=== PATIENT | male | born 1930 | race Caucasian/White ===

== ENCOUNTER 2016-07-25 07:50 | Inpatient (IN) | payer MEDICARE, OTHER ==
[~2016-07-25] VITALS: Ht 185.4 cm; Wt 103.5 kg
[2016-07-25] VITALS (10 sets, daily range): BP systolic 132–180; BP diastolic 68–97
--- NOTE | ~2016-07-25 | DS ---
[place], [place] DISCHARGE SUMMARY NAME: JAYCOB GASCA [facility] #: [id number] UNIT #: [id number] ROOM: [place] [address] DOCTOR: YU RIVERA MD BIRTHDATE: [birth year] DOS: 07/28/2016 DISCHARGE DIAGNOSES: 1. Loculated pleural effusion in left lower lung on CT of the chest. The patient going to [facility] for drainage. Dr. Cm Paredes has accepted the patient at [facility]. 2. Chronic kidney disease stage 3A. 3. Congestive heart failure, systolic type, with left ventricular ejection fraction of about 50%. 4. Late onset Alzheimer type dementia. 5. Acute respiratory failure, hypoxemic type, from acute pneumonia, which has resolved. 6. Chronic atrial fibrillation. 7. Coronary artery disease of [place] vessels and coronary artery bypass graft and stents. 8. History of chronic kidney disease stage 3 and diabetic nephropathy. 9. History of benign essential hypertension. 10. Benign prostatic hypertrophy. HOSPITAL COURSE: 1. The patient was admitted for increased shortness of breath and acute over chronic respiratory failure and he was found to have pneumonia, sepsis, and congestive heart failure. The patient had left lower lung infiltrates. Dr. Sheffield, poundmaster, was consulted and he was treated and followed closely. The patient was treated with antibiotics and finally he is now found to have loculated left lower lung fluid, for which he is being transferred to [facility] for evacuation. Dr. Sheffield will continue to follow the patient along with Dr. Cm Paredes. 2. Moderate protein-calorie malnutrition. 3. Late onset Alzheimer type dementia and mental confusion. 4. Acute over chronic systolic type CHF. The patient treated with IV Bumex, diuresed, pulse oximetry was monitored along with serum electrolytes and his CHF has improved. 5. Coronary artery disease of [place] vessels and coronary artery bypass grafts with angioplasties without any chest pains. 6. Benign essential hypertension with controlled blood pressures. 7. Chronic atrial fibrillation, rapid ventricular response, seen and followed by Dr. Ramirez, treatment adjusted. 8. Hypokalemia from diuresis, treated with potassium supplements. LABORATORY DATA: BUN and creatinine of 21 and 1.45. Sodium 148, normal potassium at 3.[address] of the chest results as mentioned above. DISCHARGE MANAGEMENT: DuoNeb every 4 hours, Pulmicort 0.5 mg b.i.d. with DuoNeb, IV Solu-Medrol 40 mg every 12 hours, Imdur 60 mg a day, diltiazem 30 mg every 6 hours, Bumex 1 mg b.i.d., digoxin 125 mcg daily, potassium chloride 20 mEq b.i.d., rivastigmine 4.6 mg patch daily, finasteride 5 mg a day, tamsulosin 0.4 mg a day, MiraLax 17 grams at bedtime, metoprolol 100 mg b.i.d., apixaban 5 mg b.i.d., Lipitor 80 mg a day, Fleet enema daily p.r.n. for constipation, [place], [place] DISCHARGE SUMMARY NAME: JAYCOB GASCA UNIT #: [id number] ROOM: [place] [address] DOCTOR: MIGUEL BEAR,YU Wolff BIRTHDATE: [birth year] azithromycin 500 mg IV daily, Zosyn 3.375 grams IV every [address] Sheffield, admit the patient under care of Dr. Cm Paredes. Vicodin 7.5/325 mg q.i.d. p.r.n. for pain. Oxygen titrate to keep pulse ox 90% to 96%. YU RIVERA MD CM:EMELIA [id number] YU RIVERA MD 07/28/161900 interface
--- NOTE | ~2016-07-25 | PR ---
[place], [place] PROGRESS NOTE NAME: JAYCOB GASCA [facility] #: [id number] UNIT #: [id number] ROOM: 520 DOCTOR: ROHIT DANIELSON MD BIRTHDATE: [birth year] DOS: 07/26/2016 SUBJECTIVE: The patient is doing fine without any new changes. He is pleasantly confused and at times inappropriate as per the nursing staff. Appears to be short of breath at rest, but the patient states that he is fine and does not have any complaints. PHYSICAL EXAMINATION: GENERAL: Today, he is awake and alert. Orientation is questionable. VITAL SIGNS: Pressure is 138/66; pulse of 70s, irregular; respirations 20; temperature 98.2. LUNGS: Diminished breath sounds. Scattered rales at the bases. HEART: Irregular. Heart rate in the 70s. ABDOMEN: Obese, soft. EXTREMITIES: Chronic lymphedema. ASSESSMENT AND PLAN: 1. Atrial fibrillation with rapid ventricular response. Heart rate is controlled. We will discontinue IV Cardizem and place him on p.o. medications. 2. Mild congestive heart failure, on IV diuretics; diastolic congestive heart failure, acute. 3. Possible left lower lobe pneumonia, on IV antibiotics. 4. Alzheimer dementia, late onset, with encephalopathy, on appropriate treatment plan. ROHIT DANIELSON MD CM:PNTRANS [id number] ROHIT DANIELSON MD 07/26/16 0822 interface
--- NOTE | ~2016-07-25 | WRIGHTHP ---
[place], [place] PATIENT HISTORY AND PHYSICAL EXAM NAME: JAYCOB GASCA [facility] #: [id number] UNIT #: [id number] ROOM: 520 DOCTOR: YU RIVERA MD BIRTHDATE: [birth year] DOS: 07/25/2016 HISTORY OF PRESENT ILLNESS: The patient is an 86-year-old gentleman with a past medical history of chronic atrial fibrillation, coronary artery disease of [place] vessels, status post coronary artery bypass grafting and stents in the past, history of chronic kidney disease stage 3, benign essential hypertension, late onset Alzheimer type dementia, benign prostatic hypertrophy. The patient presented to the Emergency Department and was seen by Dr. Marco Antonio Becker for declining health, increasing shortness of breath and he was evaluated in the Emergency Department and found to have pneumonia, sepsis and congestive heart failure. The patient had lung infiltrates in left lower lung area and the same chest x-ray showed congestive heart failure. His blood pressures were elevated. After admission, the patient's blood pressures have improved and he is starting to feel better after initial antibiotics that were given to him. The patient is awake, alert but pleasantly confused, unable to provide much history. REVIEW OF SYSTEMS: LUNGS: Recent shortness of breath and difficulty with breathing. GASTROINTESTINAL: No nausea, vomiting, diarrhea, or constipation. CARDIOVASCULAR: No chest pains or palpitations recently. HOME MEDICATIONS: Rivastigmine, finasteride, Flomax, MiraLax, metoprolol, apixaban, Lipitor, diltiazem, digoxin, DuoNeb. FAMILY HISTORY: Noncontributory. ALLERGIES: KNOWN ALLERGIES TO INDERAL. PHYSICAL EXAMINATION: GENERAL: Awake, alert, confused, in no visible distress. The patient has generalized weakness. Of course, the patient also mentally confused. VITAL SIGNS: Blood pressure 150/82, heart rate of 58 beats per minute, breathing 20 times per minute, temperature 98 degrees Fahrenheit. HEENT AND NECK: Extraocular movements are intact. Sclerae are anicteric. Oral mucosa is moist and clean. No obvious facial weakness. Neck is supple without any lymphadenopathy. No thyromegaly. No JVD. No carotid arterial bruits. LUNGS: Decreased breath sounds on lung auscultation. No wheezing. No rhonchi. CARDIOVASCULAR SYSTEM: Heart rate is regular in rate and rhythm. S1 and S2 normally audible. No significant murmur or any other abnormal cardiac sounds. ABDOMEN: Soft, nontender. No obvious organomegaly. Bowel sounds are present. No obvious herniation. EXTREMITIES: 2+ leg and pedal edema. Warm to touch. CENTRAL NERVOUS SYSTEM: Alert and oriented x 3. Cranial nerves II-XII are intact. Speech is normal. The patient is able to move all extremities. Normal muscle strength. Deep tendon reflexes are equal on both sides. Plantars were downgoing. LABORATORY DATA: ProBNP elevated to 10,800. Chest x-ray showing left lower lung airspace consolidation suspicious for pneumonia and congestive heart failure. Lactic acid level of 1.9, magnesium 1.9. BUN and creatinine of 25 and [place], [place] PATIENT HISTORY AND PHYSICAL EXAM NAME: [facility]AS[facility] [id number] UNIT #: [id number] ROOM: [facility] DOCTOR: MIGUEL BEAR,YU Wolff BIRTHDATE: [birth year] 1.2. Normal serum electrolytes. Albumin low at 2.9. Hemoglobin 9.8. No leukocytosis. IMPRESSION: 1. The patient presenting with left lower lobe pneumonic infiltrates and congestive heart failure. The patient already started on 2 antibiotics, azithromycin and Zosyn, and blood counts will be monitored. The patient is being treated with oxygen and DuoNeb and followed closely. 2. Moderate protein calorie malnutrition. 3. Late onset Alzheimer type dementia with taking bedsore precautions including every 2 hour turning, air mattress, and taking fall precautions. 4. Acute congestive heart failure, systolic type, being diuresed with IV Bumex. 5. I will get Dr. Sheffield from Pulmonary and Critical Care to follow the . 6. Coronary artery disease of [place] vessels without any angina symptoms. 7. Benign essential hypertension with controlled blood pressures, will be monitored and treated. YU RIVERA MD CM:HISPHYS:PATIENT HISTORY AND PHYSICAL EXAMINATION [id number] YU RIVERA MD 07/25/161830 interface
--- NOTE | ~2016-07-25 | PR ---
[place], [place] PROGRESS NOTE NAME: JAYCOB GASCA [facility] #: [id number] UNIT #: [id number] ROOM: [place] [address] DOCTOR: GAEL GALVEZ MD,TIGRE BIRTHDATE: [birth year] DOS: 07/27/2016 HISTORY OF PRESENT ILLNESS: This is an 86-year-old male who has been admitted to the hospital. The patient has been treated for acute respiratory failure. The patient has been noted with a change in mental status with significant respiratory distress early this morning as the patient was assessed by Dr. Amira Jenkins. The patient was transferred to Intensive Care Unit. In the Intensive Care Unit, the patient has been started on the BiPAP at this time. He has been noted more responsive without any respiratory distress and saturating well with the use of the BiPAP. The patient has not been noted symptoms of hemodynamic instability at the present time. The tachypnea has been noted decreased for this patient with the BiPAP use. OBJECTIVE: VITAL SIGNS: The patient showed normal temperature, respiratory rate 20, heart rate of 78, blood pressure 152/94-153/80. The intake for the patient recorded as 1752 mL over 1150 mL. Pulse oxygen saturation with the BiPAP 12/8, 35% oxygen 98% saturation recorded. HEENT: Shows head was atraumatic. Eyes nonicterus. CARDIOVASCULAR SYSTEM: S1, S2 audible. LUNGS: With scattered crackles of the lungs bilaterally. There was no wheezing. ABDOMEN: Soft, nontender. LABORATORY DATA: BMP for this patient 07/27/2016, BUN 21, creatinine 1.45, glucose 102. Sodium 148. CBC: The patient's hemoglobin 8.9, hematocrit 29.3, platelet count 159,000. Arterial blood gas earlier on 3 liters, pH 7.42, pCO2 of 42, pO2 of 72.4. The arterial blood gas on the BiPAP setting of 12/8, 35% oxygen, pH of 7.44, pCO2 of 41, pO2 of 131 was recorded blood culture from the of this month shows no bacterial growth. IMPRESSION: 1. The patient current respiratory distress with acute hypoxic respiratory failure secondary to the acute pneumonia the patient from aspiration. 2. Suspected dysphagia as well. 3. Possibility of fluid overload and congestive heart failure would be considered as well. 4. History of Alzheimer disease and dementia. PLAN OF TREATMENT: The patient has been responding to current use of the BiPAP at the present time was also getting the diuretic therapy. Monitor kidney functions closely because of the current diuretic as the creatinine were noted elevated. He has been ordered CT scan of the chest, which will be done without contrast that were also give a good assessment for this patient for any underlying mass lesion for this patient with area of atelectasis in the left lung. Other supportive therapy, plan of management continued at this time. Usual care. Further treatment changes will be done based on progression of illness. At this time, the patient will be continued on the BiPAP use for this patient and responding well to the treatment. He would not require to be intubated and we are started on mechanical ventilation at this time. [place], [place] PROGRESS NOTE [facility]: [id number] #: [id number] ROOM: [place] [address] DOCTOR: TIGRE GUEVARA MD BIRTHDATE: [birth year] catheter will be inserted for this patient to help improve the diuresis. Monitor left pleural fluid as well. TIGRE MAYO MD CM:PNTRANS [id number] TIGRE GALVEZ MD 07/27/16 1712 interface
--- NOTE | ~2016-07-25 | PR ---
[place], [place] PROGRESS NOTE NAME: JAYCOB GASCA [facility] #: [id number] UNIT #: [id number] ROOM: [place] [address] DOCTOR: GAEL GALVEZ MD,TIGRE BIRTHDATE: [birth year] DOS: 07/28/2016 PULMONARY PROGRESS NOTE SUBJECTIVE: He has been noted fully awake and alert at this time. The patient has been noted significant improvement in the mental status. He has not been noted with any signs of respiratory distress at this time. The patient has not been noted with symptoms of chest pain or any abdominal pain. OBJECTIVE: VITAL SIGNS: Normal temperature, respiratory rate 19, heart rate 73, blood pressure 122/81-105/57. Intake for the patient 670, output for the patient recorded 4550 mL, negative 3800 mL. Pulse oxygen saturation on 3 L nasal cannula 98% saturation. HEENT: Showed no new change. NECK: Supple. CARDIOVASCULAR: S1, S2 audible. LUNGS: Decreased breath sounds in the lower portion of the lungs. There was no wheezing or crackles. ABDOMEN: Soft, nontender. LABORATORY DATA: BMP: BUN 25, creatinine 1.49, sodium 149, remaining electrolytes grossly normal. CBC today: WBC count 4.7, hemoglobin 9.0, hematocrit 29.1, platelet count was normal. The CT scan of the chest that was done yesterday was personally reviewed, shows small possible moderate pleural fluid on the right side. Significant loculated pleural fluid for the patient was noted in the left lung for this patient with area of infiltration involving that. IMPRESSION: 1. The patient with multiloculated pleural fluid on the left side for the patient with acute pneumonia for this patient was suspected, currently treated with acute aspiration pneumonia with gram-positive organisms. 2. Right-sided pleural fluid of the patient with possibility of congestive heart failure of the patient. Other etiologies have been considered and being treated. 3. Resolving acute changes in the mental status of the patient and the acute hypoxic respiratory failure. 4. Acute exacerbation of COPD/bronchial asthma as well. 5. History of Alzheimer disease. 6. Atrial fibrillation, chronic anticoagulation. PLAN OF TREATMENT: The patient will be recommended about transfer to another hospital for a VATS procedure on the left side for the medical management of multiloculated pleural fluid. Information has been discussed with his primary care physician. Continuation of the previous treatment, plan of management at this time including antibiotic, use of the BiPAP and other plan of therapies as in progress. Usual treatments. [place], [place] PROGRESS NOTE [id number] #: [id number] ROOM: [place] [address] DOCTOR: GAEL GALVEZ MD,TIGRE BIRTHDATE: [birth year] TIGRE MAYO MD CM:PNTRANS 1014 3 TIGRE GALVEZ MD 07/29/165 interface
--- NOTE | ~2016-07-25 | CON ---
[place], [place] REPORT OF CONSULTATION NAME: JAYCOB GASCA [facility] #: [id number] UNIT #: [id number] ROOM: 520 DOCTOR: GAEL GALVEZ MD,TIGRE BIRTHDATE: [birth year] DOS: 07/26/2016 PULMONARY CONSULTATION EVALUATION AND MANAGEMENT CONSULTATION REQUESTED BY: Josias Walker MD REASON FOR CONSULTATION: Acute pneumonia. HISTORY OF PRESENT ILLNESS: This is an 86-year-old white male who is currently residing at the [facility]. The patient has been admitted under care of Dr. Walker on 07/25/2016. He has been noted with symptoms of increased shortness of breath, coughing and chest congestion. The patient was sent to the Emergency Room for further assessment. He has been assessed in the Emergency Room. The patient has been admitted to the hospital for the medical management of left lower lobe pneumonia. The patient has been known with history of chronic dementia, unable to give me any history by himself. At this time, this patient was noted with increased dyspnea as well as tachypnea. His oxygen saturation noted 72%. He was ordered the blood gases and started on oxygen supplementation nasal cannula resulting in improvement in the oxygen saturation 95% saturation. REVIEW OF SYSTEMS: Cannot be completed since the patient has dementia, unable to give me any history and has normal verbal conversations. PAST MEDICAL HISTORY: The patient was known with history of: 1. Alzheimer's disease and dementia. 2. Myocardial infarction. 3. Hypertension. 4. Coronary artery disease. 5. Chronic atrial fibrillation. 6. Trigeminal neuralgia. 7. History of nephrolithiasis. PAST SURGICAL HISTORY: 1. Coronary artery bypass graft in 1993. 2. Surgery of trigeminal neuralgia x 2. 3. Cardiac catheterization and coronary artery stent insertion. SOCIAL HISTORY: The patient is currently a resident of [facility], not known if the patient has been noted with past tobacco use, alcohol or any illicit drugs. FAMILY HISTORY: The patient was reported as history of cancer. MEDICATIONS: Currently administered medication of patient known as use of Bumex, Exelon patch, finasteride, Cardizem-CD, Flomax, MiraLax, Eliquis 5 mg b.i.d., digoxin, DuoNeb, Zithromax, Zosyn and other medications p.r.n. use. DRUG ALLERGIES: The patient was noted as allergies to INDERAL LA. [place], [place] REPORT OF CONSULTATION [facility]: [id number] UNIT #: [id number] ROOM: 520 DOCTOR: GAEL GALVEZ MD,TIGRE BIRTHDATE: [birth year] PHYSICAL EXAMINATION: GENERAL: This 86-year-old male who has been noted currently without distress, disoriented, most likely secondary to his underlying dementia. Height of the patient recorded as 6 feet 1 inch, weight of 227 pounds, BMI 29.9. VITAL SIGNS: Show normal temperature for the patient in the last 48 hours, respiratory rate of 20-27, heart rate of 102-78, blood pressure -130/66. Pulse oxygen saturation 90% on room air, and 2 liters nasal cannula was 94% saturation. HEENT: Moderate obesity. NECK: Supple. CARDIOVASCULAR: S1, S2 audible. LUNGS: Expiratory wheezing noted in the lungs for the patient with crackles and decreased breath sounds in the left lower lung. ABDOMEN: Soft, nontender. LABORATORY DATA: CBC of the patient on 07/25/2016 on admission, WBC count was normal, hemoglobin 9.6, hematocrit 32.1, platelet count was normal. CBC that was done this morning shows WBC count 7.0, hemoglobin 8.8, hematocrit of 28.8 with normal platelet count of 159,000. The BMP for this patient that was done on admission 07/25/2016 shows sodium 146. BUN 25, creatinine 1.23. Glucose 156. BMP this morning for the patient showed BUN 24, creatinine 1.36. Sodium 150, potassium 3.2. Lactic acid was noted 1.3 for this patient yesterday on admission. Magnesium was normal. PT/PTT of patient yesterday on admission was normal as well. Chest x-ray of the patient that was done, 1 view, on 07/25/2016 shows moderate sized area of consolidation, infiltration. Chest x-ray done this morning shows similar finding for the patient with a small left-sided pleural fluid as well with increased interstitial markings. The appearance of the infiltration at this time appeared to be very dense with additional consideration of mass lesion in that area cannot be completely excluded. IMPRESSION: 1. The patient with acute hypoxic respiratory failure secondary to acute pneumonia, most likely related to aspiration, history of dementia would be considered most likely etiology. The patient would be considered current pneumonia related to the gram-positive organism as well, which is already being treated with antibiotics. 2. History of dementia and Alzheimer's disease as well with some additional confusion for the patient related to the current acute infection would be considered. 3. Small left-sided pleural fluid as well. 4. Rule out any underlying mass for this patient with further assessment of patient after the appropriate treatment of the current infection completed. PLAN OF TREATMENT: Continue antibiotics for the patient, aspiration precautions. Monitor chest x-ray. Once the patient stabilizes, he would be considered to have a CT scan of the chest to be done as well to assessment and rule out any mass lesion, especially in the left lower lobe area. Continue anticoagulation for the patient with history of atrial fibrillation as well. Usual care. Titrate oxygen and maintain saturation % greater. Arterial blood gas for the patient, which has been ordered, was obtained, does not show [place], [place] REPORT OF CONSULTATION NAME: JAYCOB GASCA UNIT #: [id number] ROOM: [facility] DOCTOR: GAEL GALVEZ MD,TIGRE BIRTHDATE: [birth year] any evidence of CO2 narcosis. Hypoxia was improved for this patient on current oxygen supplementation. The pH was noted 7.45, pCO2 of 38, pO2 of 77.1. The patient's code status was noted as a full code as well. If the hypoxia does not get corrected with current oxygen supplementation or worsened further, trial of the BiPAP for this patient, if failed, the patient may need to be transferred to Intensive Care Unit for intubation and mechanical ventilation if necessary at that time. Currently, the patient seems to be responding to treatment with simple oxygen supplementation that will be continued. Sputum for Gram stain and culture of the patient will be done if the patient is able to expectorate any sputum. The pleural fluid will be monitored, does not require any acute intervention at this time immediately. If the pleural fluid enlarges, certainly consideration for thoracentesis will be given. Thanks for allowing me to participate in the care of this patient. TIGRE MAYO MD CM:CONSTR:REPORT OF CONSULTATION 1049 07/26/16 2238 interface
--- NOTE | ~2016-07-25 | PR ---
[place], [place] PROGRESS NOTE NAME: JAYCOB GASCA [facility] #: [id number] UNIT #: [id number] ROOM: [place] [address] DOCTOR: LAVERNE OCONNELL MD BIRTHDATE: [birth year] DOS: 07/27/2016 CARDIOLOGY PROGRESS NOTE SUBJECTIVE: The patient was seen at his bedside in the Intensive Care Unit this morning, 07/27/2016. When I saw him yesterday, he was comfortable but still had a relatively rapid heart rhythm. I increased his oral dose of diltiazem and digoxin and increased his diuresis. Around midnight, they were able to wean him off of intravenous diltiazem. His heart rate has remained controlled since then. This morning, however, he was noted to be more lethargic with an oxygen saturation of 95 and a pO2 of 72. He was placed on BiPAP and became more comfortable. He was moved to the Intensive Care Unit for further management. Currently, he is on BiPAP and seems much more lethargic than when I have seen him in the past. PHYSICAL EXAMINATION: VITAL SIGNS: His pulse is 87 and irregularly irregular. Blood pressure is 150/90. His oxygen saturation on BiPAP is 98%. His weight was 103.0 kilograms. HEENT: Normocephalic, atraumatic. Extraocular muscles are intact. Sclerae are clear. NECK: Supple. He does not have significant neck vein distention when lying in a 45 degree angle. He does have mild hepatojugular reflux. Carotids are full. LUNGS: Respirations are per BiPAP and seem to be fairly comfortable. He does have bibasilar crackles. HEART: An irregularly irregular rhythm, which is controlled. Does have a grade 2/6 systolic murmur along the left sternal border. I do not hear any diastolic murmurs. The PMI was not displaced. ABDOMEN: Soft and normoactive. EXTREMITIES: Showed 1+ edema bilaterally. LABORATORY DATA: Hemoglobin is 8.9, white count 5400, platelet count 159,000. Sodium 148, potassium 3.8, BUN 21, creatinine 1.45. Sugar was 102 this morning. Blood gases just drawn on BiPAP a few moments ago, pH is 7.45 with a pCO2 of 41.1, pO2 of 131, bicarbonate 28.3. IMPRESSION: 1. Acute on chronic respiratory distress. 2. Atrial fibrillation with rapid ventricular response, rate now controlled. 3. History of hypertension. 4. Dementia. 5. Wide complex tachycardia on admission, most likely due to aberrancy with rapid atrial fibrillation. 6. Permanent atrial fibrillation. PLAN: We will repeat his EKG and chest x-ray in order to help determine the cause for his acute deterioration. A CAT scan of his chest is pending. We will continue his current diuresis for now. I thank Dr. Jenkins for asking our advice regarding his care. [place], [place] PROGRESS NOTE NAME: JAYCOB GASCA UNIT #: [id number] ROOM: [place] [address] DOCTOR: LAVERNE OCONNELL MD BIRTHDATE: [birth year] LAVERNE OCONNELL MD CM:MABEL [id number] LAVERNE OCONNELL MD 07/27/16 1126 interface
--- NOTE | ~2016-07-25 | DS ---
[place], [place] DISCHARGE SUMMARY [facility] [id number] UN[facility] #: [id number] ROOM: 520 DOCTOR: ROHIT DANIELSON MD BIRTHDATE: [birth year] DOS: 07/26/2016 The patient has gotten much worse in the last 24 hours is nearly obtunded and lethargic and quite short of breath with audible wheezing and abdominal breathing. He did not respond to call. He seemed to have tried to avoid this morning, but he seemed to have a hard time with that also. PHYSICAL EXAMINATION: VITAL SIGNS: Blood pressure is 140/76, pulse of 72, respirations about 24, temperature 98.6. LUNGS: Diminished breath sounds, scattered wheezes heard bilaterally. HEART: Irregular. ABDOMEN: Obese with abdominal breathing. EXTREMITIES: Chronic lymphedema. ASSESSMENT AND PLAN: 1. The patient who presents with acute hypoxic respiratory failure with acute bronchospasm. A CT of the chest will be done to further delineate the exact pathology in his lungs. The chest x-ray seems to show both pneumonia and CHF. He is on both diuretics and multiple antibiotics. We will add Solu-Medrol and Pulmicort to his regimen this morning. 2. Atrial fibrillation with rapid ventricular response. He is on p.o. Cardizem and p.o. beta blockers and p.o. digoxin. Heart rate seems to be slightly high because of his increased respiratory distress and he is a full code. We will get an ABG this morning to see whether he needs to be transferred to ICU. 3. Alzheimer dementia, late onset again confused this morning, possibly from hypoxemia. ROHIT DANIELSON MD CM:DISCHARG [id number] ROHIT DANIELSON MD 07/27/16 0813 interface
--- NOTE | ~2016-07-25 | PR ---
[place], [place] PROGRESS NOTE NAME: JAYCOB GASCA [facility] #: [id number] UNIT #: [id number] ROOM: 520 DOCTOR: LAVERNE OCONNELL MD BIRTHDATE: [birth year] DOS: 07/26/2016 CARDIOLOGY PROGRESS NOTE SUBJECTIVE: The patient was seen at his bedside today, 07/26/2016 for followup of his atrial fibrillation and wide complex tachycardia. He presented yesterday with congestive heart failure and a rapid response to his atrial fibrillation. The monitor did show runs of wide complex tachycardia. Upon assessment I believe that this is atrial fibrillation with aberrant conduction rather than ventricular tachycardia. When we slowed his rate with diltiazem intravenously, the wide complex tachycardia improved. He feels well today. He is breathing better, but he did not tolerate the discontinuation of his IV diltiazem this morning because his heart rate went up again. PHYSICAL EXAMINATION: VITAL SIGNS: Today, his pulse is about 100 and irregularly irregular, blood pressure is 109/84. He is afebrile. He weighs 103 kilograms with a body mass index of 30. NECK: Supple. He has no jugular distention. Carotids are full. I heard no bruits. LUNGS: Respirations are unlabored. Chest has decreased breath sounds at the bases. He has no presacral edema. HEART: Has an irregularly irregular pulse. There are no obvious murmurs. ABDOMEN: Benign. EXTREMITIES: Showed 3+ edema bilaterally. LABORATORY DATA: His hemoglobin is 8.8 with a white count of 7000, a platelet count 159,000. Digoxin level is 0.84, sodium is 150, potassium 3.2, BUN 24, and creatinine 1.36. I think he would benefit from tighter control of his heart rate; therefore, I did increase his digoxin, especially since his level is subtherapeutic. I also placed him on oral diltiazem in an effort to wean him off the intravenous drug. PLAN: We will continue his current dose of metoprolol. He will also continue apixaban for stroke prophylaxis. I will increase his Bumex to try to improve his diuresis. I will replace his potassium today. We will continue to follow him in the hospital. I thank Dr. Barker for asking our advice regarding his care. [place], [place] PROGRESS NOTE NAME: JAYCOB GASCA UNIT #: [id number] ROOM: 520 DOCTOR: LAVERNE OCONNELL MD BIRTHDATE: [birth year] LAVERNE OCONNELL MD CM:PNTRANS [id number] LAVERNE OCONNELL MD 07/26/16 9710 interface
--- NOTE | ~2016-07-25 | EKG ---
[place], [place] ELECTROCARDIOGRAM REPORT NAME: JAYCOB GASCA UNIT #: [id number] ROOM: [place] [address] DOCTOR: LAVERNE OCONNELL MD BIRTHDATE: [birth year] DOS: 07/27/2016 TIME: 09:22 am. Atrial fibrillation with controlled ventricular response, occasional PVC or ____ conducted beats. Non-specific ST and T wave changes. No acute ST elevation or depression. Probable inferior infarction indeterminant. Abnormal electrocardiogram. LAVERNE OCONNELL MD CM:EKGRPT:ELECTROCARDIOGRAM REPORT [id number] LAVERNE OCONNELL MD
--- NOTE | ~2016-07-25 | CON ---
[place], [place] REPORT OF CONSULTATION NAME: JAYCOB GASCA [facility] #: [id number] UNIT #: [id number] ROOM: 520 DOCTOR: LAVERNE OCONNELL MD BIRTHDATE: [birth year] DOS: 07/25/2016 CARDIOLOGY CONSULTATION REASON FOR CONSULTATION: Dyspnea, irregular heartbeat. HISTORY OF PRESENT ILLNESS: The patient is an 86-year-old man, who has a long history of atherosclerotic heart disease. He tells me that he is routinely followed by Dr. Schreiber, at the [facility]; however, the patient cannot recall when he last saw him. He has been hospitalized on several occasions recently at the [facility]. I saw him when he was hospitalized on 05/01/2016. He presented at that time with worsening dyspnea and chest tightness. An echocardiogram on 05/03/2016, showed mild global left ventricular hypokinesis, especially involving the distal inferior septum. Left ventricular systolic function was mildly impaired with an ejection fraction between 45% and 50%. There was moderate left atrial enlargement. The aortic valve was sclerotic and he had [id number] mitral insufficiency. A pharmacologic stress test was also done on 05/03/2016, and showed an ejection fraction of 40% with evidence for previous lateral myocardial infarction with a small area of ischemia in the inferior wall. Given the fact that his disease appeared to be fairly limited. He was managed medically. He subsequently did have a lwv-UK-oamflgj elevation myocardial infarction, which again was treated medically. He has been a resident of a penitentiary since then. The patient does have a history of dementia and is a poor historian. He states, however, that recently he has become more short of breath again. He denies having any chest pain. He came to the emergency room, where he was found to have consolidation in the left lower lobe along with pulmonary vascular congestion, he was admitted for management of pneumonia and heart failure. PAST MEDICAL HISTORY: Somewhat limited but includes; 1. Coronary artery disease, status post 3-vessel bypass surgery at the [facility] in [place] around 1993. 2. Status post 3 stents placed at the [facility] by Dr. Schreiber, in the early 1999s, details not available. 3. Chronic atrial fibrillation. The patient refuses anticoagulation for a while a long time, but now is on Eliquis. 4. Hypertension. 5. Hyperlipidemia. 6. History of kidney stones. 7. Trigeminal neuralgia. The patient has had surgical procedures on at least 2 occasions to help treat the pain of obvious trigeminal neuralgia. 8. Dementia. MEDICATIONS: Prior to admission included; 1. Albuterol by inhaler q.i.d. p.r.n. 2. Apixaban 5 mg q. 12 hours. 3. Atorvastatin 80 mg every day. [place], [place] REPORT OF CONSULTATION NAME: JAYCOB GASCA UNIT #: [id number] ROOM: [facility] DOCTOR: LAVERNE OCONNELL MD BIRTHDATE: [birth year] 4. Cholecalciferol 1000 units daily. 5. Digoxin 125 mcg daily. 6. Finasteride 5 mg daily. 7. Ginkgo 60 mg daily. 8. Guaifenesin 600 mg 2 tablets b.i.d. 9. Hydrocodone with acetaminophen b.i.d. 10. Milk of magnesia p.r.n. 11. Metoprolol succinate 100 mg b.i.d. 12. Multivitamin daily. 13. Eldred 3 fish oil 500 mg daily. 14. Polyethylene glycol at bedtime daily p.r.n. 15. Tamsulosin 0.4 mg at bedtime. 16. Vitamin A, C, and E (PreserVision) daily. 17. Bisacodyl 10 mg daily p.r.n. constipation. 18. Fleets enema p.r.n. 19. Nitroglycerin patch 0.2 mg per hour applied in the morning and removed at bedtime. 20. Rivastigmine patch 4.6 mg for 24 hours, change daily. ALLERGIES: THE PATIENT LISTS AN ALLERGY TO PROPRANOLOL. REVIEW OF SYSTEMS: The patient denies diplopia or loss of vision. He is generally weak, but denies focal weakness. He denies lightheadedness or syncope. He denied dyspnea at first, but was obviously dyspneic during my assessment. He denies nausea or vomiting. He denies fevers, chills, sweats or recent weight change. He denied orthopnea or PND, but he was orthopneic as I examined him. He denied chest pain, palpitations or syncope. He denied hemoptysis. He did admit to a chill and he did admit to a productive cough, which may have gotten worse lately. He denied any bleeding from bowels or bladder. He denies any change in his bowel or bladder habits. He does admit to peripheral edema in his feet. The remainder of the review of systems is negative except as noted above. SOCIAL HISTORY: The patient is a resident of a penitentiary. He does not smoke or consume alcohol at the present time. FAMILY HISTORY: His father of cancer. His mother of heart disease. PHYSICAL EXAMINATION: GENERAL: The patient is an elderly white male, who is awake, alert and oriented x 2. He is intermittently disoriented to place as well. VITAL SIGNS: Pulse is 86 and irregularly irregular, it is frequently higher than 110. Blood pressure 150/97. He is afebrile. HEENT: Normocephalic, atraumatic. Extraocular muscles are intact. Sclerae are clear. Pupils are equal, round and reactive to light. Oral mucosa is moist. Tongue is midline. NECK: Supple. He does have jugular distention to the angle of the jaw when sitting in a 45-degree angle. He has hepatojugular reflux. Carotids are full. I heard no bruits. CHEST: Respirations were somewhat labored at rest. He had a hard time [place], [place] REPORT OF CONSULTATION NAME: JAYCOB GASCA UNIT #: [id number] ROOM: [facility] DOCTOR: LAVERNE OCONNELL MD BIRTHDATE: [birth year] finishing a sentence. He does have rales at the bases and about [facility] up, especially at the left base. He had presacral edema, but no chest wall tenderness. CARDIOVASCULAR: His heart had an irregularly irregular rapid rhythm. There are no obvious murmurs or gallops. The PMI was not displaced. He had no precordial heave, lift or thrill. ABDOMEN: Slightly distended. There is no obvious fluid wave. He had no tenderness or rebound. There were no obvious masses. EXTREMITIES: Showed 2+ edema of the legs to the knees bilaterally. LABORATORY DATA: I reviewed his electrocardiographic tracings. He does have an intraventricular conduction delay and atrial fibrillation with a rapid ventricular response. His rhythm strips do show frequent periods of aberrant conduction. It is not clear whether this represents wide complex tachycardia or aberrant conduction with atrial fibrillation; however, the patient is asymptomatic at this time. Hemoglobin is 9.8, white count 5900, platelet count 166,000. Chemistry shows sodium of 146, potassium 4.0, BUN 25, creatinine 1.23. Magnesium level is 1.9. Troponin level was minimally elevated at 0.065. IMPRESSION: 1. Acute exacerbation of chronic diastolic congestive heart failure. 2. Coronary artery disease, status post remote bypass surgery and subsequent percutaneous interventions. 3. Hypertension. 4. Dementia. 5. Wide complex tachycardia. 6. Permanent atrial fibrillation. PLAN: For now, we will slow his heart rate and see if the wide complex tachycardia does not resolve. It is my impression that the wide complex tachycardia is an aberrancy phenomenon and should improve as his rate is slowed. We will follow serial cardiac biomarkers to make sure he does not show any signs of an acute cardiac injury. We will continue his beta evens and add diltiazem to his regimen. I will also be checking a digoxin level to make sure the digoxin toxicity is not a cause for his arrhythmias. Otherwise, we will try to remain conservative in his care, especially given his problems with dementia. We thank Dr. Walker and Dr. Jenkins, for asking our advice regarding management of this patient. [place], [place] REPORT OF CONSULTATION NAME: JAYCOB GASCA UNIT #: [id number] ROOM: [facility] DOCTOR: LAVERNE OCONNELL MD BIRTHDATE: [birth year] LAVERNE OCONNELL MD CM:CONSTR:REPORT OF CONSULTATION [id number] 07/25/16 2336 interface
[~2016-07-25 07:50] MED LIST: 50+ ADULT EYE1 EACH PO; AMIODARONE HCL200 MG PO; AMIODARONE200 MG PO; AMLODIPINE5 MG PO; ASCRIPTIN ENTER81 MG PO; ASPIR 8181 MG PO; ASPIRIN81 M1 PO; ATORVASTATIN CA80 M1 PO; AVADART; AVODART0.5 MG PO; CEFUROXIME AXE250 MG PO; CIPROFLOXACIN500 M4 PO; CRESTOR20 MG PO; DIGOX0.125 MG PO; DIGOXIN0.125 MG PO; DULCOLAX10 M1 RC; ELIQUIS5 M1 PO; EXELON4.6 MG/24 T; EXELON4.6 MG/24 TD; EYE VITAMINS1 TAB PO; FINASTERIDE5 M1 PO; FISH OIL PO; FISH OIL1 IU PO; FISH OIL500 M2 PO; FLEET ENEMA 13133 ML RC; FLOMAX0.4 MG PO; GINKGO60 MG PO; HYDR25T PO; HYDROCODONE/ACE1 T12 PO; IBUPROFEN600 MG PO; K + POTASSIUM20 MEQ PO; K-Dur 20MEQ20 MEQ PO; LASIX20 MG PO; LASIX40 MG PO; MASON NATURAL1000 IU PO; MILK OF MA400 MG/51 PO; MIRALAX POWDER255 G1 PO; MIRALAX17 GM PO; MIRALAX17 GM/PACK PO; MOBIC7.5 MG PO; MULTI-DAY VITA1 EACH PO; NITRO TRANS0.2 MG/HR TD; NITRO-DUR1 EAC1 TD; NORCO 7.5-3251 EACH PO; PLAVIX75 M1 PO; PLAVIX75 MG PO; POLLY-VITES1 CTB PO; POTASSIUM CITR10 ME1 PO; PRAVASTATIN SOD80 MG PO; PRESERVISION1 SGL PO; PROAIR HFA8.5 GM INH; PROSCAR5 M1 PO; Percocet 325 MG1 TAB PO; TAMSULOSIN HCL0.4 MG PO; TEGRETOL200 MG PO; TOPROL XL100 MG PO; ULTRAM50 MG PO; UROCIT PO; VITAMIN C PO; VITAMIN D1000 IU PO; Vicodin 5/500 505 MG PO; ZESTRIL20 MG PO; ZESTRIL40 MG PO; ZETIA10 MG PO; ZINC50 M2 PO; [UNRECOGNIZED DRUG - OTHER] PO
[2016-07-25 08:18] LABS: BASO % 0.3 % (0.0-1.0); EOS # 0.1 10*3/uL (0.0-0.4); HEMATOCRIT 32.1 % (42.0-52.0); HEMOGLOBIN 9.8 g/dl (14.0-18.0); LYMPH # 0.9 10*3/uL (1.3-4.4); LYMPH % 14.8 % (27.0-41.0); MEAN CELL VOLUME 101.9 fl (80.0-94.0); MEAN CORPUSCULAR HGB 31.1 pg (27.0-31.0); MEAN CORPUSCULAR HGB CONC 30.5 g/dl (33.0-37.0); MEAN PLATELET VOLUME 10.4 fl (9.6-12.3); MONO # 0.5 10*3/uL (0.1-1.0); MONO % 8.5 % (3.0-9.0); NEUT # 4.4 10*3/uL (2.3-7.9); NEUT % 75.1 % (47.0-73.0); PLATELET COUNT AUTOMATED 166 10*3/uL (130-400); RED BLOOD COUNT 3.15 10*6/uL (4.50-5.90); WHITE BLOOD COUNT 5.9 10*3/uL (4.8-10.8)
[2016-07-25 08:27] LABS: INTERNATIONAL NORM RATIO 1.1 (2.0-3.5)
[2016-07-25 08:37] LABS: ALBUMIN 2.9 gm/dl (3.1-4.5); ALKALINE PHOSPHATASE 94 U/L (45-117); BILIRUBIN, TOTAL 0.9 mg/dl (0.2-1.0); BUN 25 mg/dl (7-24); CARBON DIOXIDE 31 mmol/L (21-32); CHLORIDE 110 mmol/L (98-107); EST GLOM FILT AFRICAN AMERICAN > 60 ml/min; GLUCOSE 106 mg/dL (65-99); SGOT/AST 18 IU/L (3-35); SGPT/ALT 26 U/L (12-78); SODIUM 146 mmol/L (136-145); TOTAL PROTEIN 6.3 gm/dL (6.4-8.2)
[2016-07-25 08:39] LABS: TROPONIN I 0.065 ng/ml (<0.045)
[2016-07-25] MEDS ORDERED: DOXYCYCLINE100 M3 PO (08:55)
[2016-07-25] MEDS ORDERED: PREDNISONE10 MG PO (08:56)
[2016-07-25] MEDS ORDERED: VENTOLIN H0.09 MG/AC INH (08:56)
[2016-07-25] MEDS ORDERED: GUAIFENESIN600 MG PO (10:25)
[2016-07-26] VITALS (9 sets, daily range): BP systolic 109–147; BP diastolic 66–84
[2016-07-26 06:30] LABS: BASO % 0.1 % (0.0-1.0); EOS # 0.1 10*3/uL (0.0-0.4); HEMATOCRIT 28.8 % (42.0-52.0); HEMOGLOBIN 8.8 g/dl (14.0-18.0); LYMPH # 0.6 10*3/uL (1.3-4.4); LYMPH % 8.5 % (27.0-41.0); MEAN CELL VOLUME 100.7 fl (80.0-94.0); MEAN CORPUSCULAR HGB 30.8 pg (27.0-31.0); MEAN CORPUSCULAR HGB CONC 30.6 g/dl (33.0-37.0); MEAN PLATELET VOLUME 10.5 fl (9.6-12.3); MONO # 0.7 10*3/uL (0.1-1.0); MONO % 10.1 % (3.0-9.0); NEUT # 5.6 10*3/uL (2.3-7.9); NEUT % 78.9 % (47.0-73.0); PLATELET COUNT AUTOMATED 159 10*3/uL (130-400); RED BLOOD COUNT 2.86 10*6/uL (4.50-5.90); RED CELL DISTRI WIDTH 15.9 % (0-14.5)
[2016-07-26 07:06] LABS: BUN 24 mg/dl (7-24); CARBON DIOXIDE 29 mmol/L (21-32); CHLORIDE 110 mmol/L (98-107); EST GLOM FILT AFRICAN AMERICAN > 60 ml/min; GLUCOSE 117 mg/dL (65-99); POTASSIUM 3.2 mmol/L (3.5-5.1); SODIUM 150 mmol/L (136-145)
[2016-07-26 07:16] LABS: DIGOXIN 0.84 ng/ml (0.8-2.0)
[2016-07-26 09:40] LABS: ABG BASE EXCESS 2.7 mmol/L (-2.0-2.0); ABG CO2 CONTENT 27.6 mmol/L (23-27); ABG HCO3 26.4 mmol/l (22-26); ABG TEMPERATURE 97.9 F (98.0-99.0); ARTERIAL BLOOD GAS PH 7.452 (7.35-7.45); ARTERIAL BLOOD GAS PO2 77.1 mmHg (80-90)
[2016-07-27] VITALS (9 sets, daily range): BP systolic 120–161; BP diastolic 67–94
[2016-07-27 06:09] LABS: BASO % 0.2 % (0.0-1.0); EOS # 0.2 10*3/uL (0.0-0.4); EOS % 4.3 % (1.0-4.0); HEMATOCRIT 29.3 % (42.0-52.0); HEMOGLOBIN 8.9 g/dl (14.0-18.0); LYMPH # 0.8 10*3/uL (1.3-4.4); LYMPH % 14.1 % (27.0-41.0); MEAN CELL VOLUME 102.4 fl (80.0-94.0); MEAN CORPUSCULAR HGB 31.1 pg (27.0-31.0); MEAN CORPUSCULAR HGB CONC 30.4 g/dl (33.0-37.0); MEAN PLATELET VOLUME 10.4 fl (9.6-12.3); MONO # 0.6 10*3/uL (0.1-1.0); MONO % 11.3 % (3.0-9.0); NEUT # 3.8 10*3/uL (2.3-7.9); NEUT % 69.7 % (47.0-73.0); PLATELET COUNT AUTOMATED 159 10*3/uL (130-400); RED BLOOD COUNT 2.86 10*6/uL (4.50-5.90); WHITE BLOOD COUNT 5.4 10*3/uL (4.8-10.8)
[2016-07-27 06:39] LABS: POTASSIUM 3.8 mmol/L (3.5-5.1)
[2016-07-27 07:59] LABS: ABG BASE EXCESS 3.4 mmol/L (-2.0-2.0); ABG CO2 CONTENT 29.1 mmol/L (23-27); ABG HCO3 27.8 mmol/l (22-26); ABG TEMPERATURE 97.6 F (98.0-99.0); ARTERIAL BLOOD GAS PH 7.425 (7.35-7.45); ARTERIAL BLOOD GAS PO2 72.4 mmHg (80-90)
[2016-07-27 09:11] LABS: ABG BASE EXCESS 4.2 mmol/L (-2.0-2.0); ABG CO2 CONTENT 29.6 mmol/L (23-27); ABG HCO3 28.3 mmol/l (22-26); ABG TEMPERATURE 97.4 F (98.0-99.0); ARTERIAL BLOOD GAS PH 7.449 (7.35-7.45)
[2016-07-28] VITALS: BP 96/66
[2016-07-28 04:00] VITALS: BP 105/57
[2016-07-28 05:35] LABS: POTASSIUM 3.8 mmol/L (3.5-5.1)
[2016-07-28 06:05] LABS: HEMATOCRIT 29.1 % (42.0-52.0); MEAN CELL VOLUME 100.7 fl (80.0-94.0); MEAN CORPUSCULAR HGB 31.1 pg (27.0-31.0); MEAN CORPUSCULAR HGB CONC 30.9 g/dl (33.0-37.0); MEAN PLATELET VOLUME 10.5 fl (9.6-12.3); PLATELET COUNT AUTOMATED 169 10*3/uL (130-400); RED BLOOD COUNT 2.89 10*6/uL (4.50-5.90); RED CELL DISTRI WIDTH 15.8 % (0-14.5); WHITE BLOOD COUNT 4.7 10*3/uL (4.8-10.8)
[2016-07-28 06:41] LABS: LYMPHOCYTE # 0.3 10*3/uL (1.3-4.4); MONOCYTE # 0.1 10*3/uL (0.1-1.0); NEUTROPHIL # 4.3 10*3/uL (2.3-7.9); NEUTROPHILS 92 % (47-73); TOTAL CELLS COUNTED 100 #CELLS
[2016-07-28 06:42] LABS: PLATELET SUFFICIENCY NORMAL (NORMAL); POLYCHROMASIA SLIGHT
[2016-07-28 08:00] VITALS: BP 122/81
[2016-07-28 12:00] VITALS: BP 100/61
== END 2016-07-28 16:57 | disposition short-term general hospital (02) | DRG 871 ==
LOC: ED 07:50 → EDHOLD 09:20 → 5E 09:20 → ICCU 07-27 08:21
PROVIDERS: Emergency Medicine; Internal Medicine; Internal Medicine Critical Care Medicine
PROC: 5A09357 Assistance with Respiratory Ventilation, Less than 24 Consecutive Hours, Continuous Positive Airway Pressure (ICD-10-PCS; principal; 2016-07-27)
DX: A41.9 Sepsis, unspecified organism (principal); J69.0 Pneumonitis due to inhalation of food and vomit; J96.01 Acute respiratory failure with hypoxia; I50.23 Acute on chronic systolic (congestive) heart failure; E44.0 Moderate protein-calorie malnutrition; E11.22 Type 2 diabetes mellitus with diabetic chronic kidney disease; G30.1 Alzheimer's disease with late onset; N18.3 Chronic kidney disease, stage 3 (moderate); I48.2 Chronic atrial fibrillation; F02.80 Dementia in other diseases classified elsewhere, unspecified severity, without behavioral disturbance, psychotic disturbance, mood disturbance, and anxiety; I13.0 Hypertensive heart and chronic kidney disease with heart failure and stage 1 through stage 4 chronic kidney disease, or unspecified chronic kidney disease; I25.10 Atherosclerotic heart disease of native coronary artery without angina pectoris; E87.6 Hypokalemia; N40.0 Benign prostatic hyperplasia without lower urinary tract symptoms; R65.20 Severe sepsis without septic shock; Z95.1 Presence of aortocoronary bypass graft; Z95.5 Presence of coronary angioplasty implant and graft; Z88.8 Allergy status to other drugs, medicaments and biological substances; Z79.899 Other long term (current) drug therapy; Z80.9 Family history of malignant neoplasm, unspecified; Z79.01 Long term (current) use of anticoagulants; Z82.49 Family history of ischemic heart disease and other diseases of the circulatory system; Z68.37 Body mass index [BMI] 37.0-37.9, adult

== ENCOUNTER 2016-09-16 10:13 | Emergency (ER) | payer MEDICARE, OTHER ==
[~2016-09-16] VITALS: Ht 185.4 cm; Wt 113.4 kg
[~2016-09-16 10:13] MED LIST changes: +DOXYCYCLINE100 M3 PO; +GUAIFENESIN600 MG PO; +PREDNISONE10 MG PO; +VENTOLIN H0.09 MG/AC INH
[2016-09-16] MEDS ORDERED: BUMETANIDE2 MG PO (10:36)
[2016-09-16] MEDS ORDERED: DILTIAZEM30 MG PO (10:38)
[2016-09-16] MEDS ORDERED: RISPERDAL0.25 MG PO (10:45)
[2016-09-16] MEDS ORDERED: FLOMAX0.4 MG PO (10:46)
[2016-09-16 13:20] VITALS: BP 127/79
== END 2016-09-16 13:42 ==
LOC: ED 10:13
DX: S22.32XA Fracture of one rib, left side, initial encounter for closed fracture (principal); S51.811A Laceration without foreign body of right forearm, initial encounter; I48.91 Unspecified atrial fibrillation; I25.10 Atherosclerotic heart disease of native coronary artery without angina pectoris; I13.0 Hypertensive heart and chronic kidney disease with heart failure and stage 1 through stage 4 chronic kidney disease, or unspecified chronic kidney disease; N18.9 Chronic kidney disease, unspecified; I50.20 Unspecified systolic (congestive) heart failure; E78.00 Pure hypercholesterolemia, unspecified; Z87.442 Personal history of urinary calculi; Z95.1 Presence of aortocoronary bypass graft; Z95.5 Presence of coronary angioplasty implant and graft; Z98.890 Other specified postprocedural states; Z79.899 Other long term (current) drug therapy; Z88.8 Allergy status to other drugs, medicaments and biological substances; W19.XXXA Unspecified fall, initial encounter; Y93.89 Activity, other specified; Y92.129 Unspecified place in nursing home as the place of occurrence of the external cause; Y99.9 Unspecified external cause status

== ENCOUNTER 2016-10-15 17:45 | Emergency (ER) | payer MEDICARE, OTHER ==
[~2016-10-15] VITALS: Ht 180.3 cm; Wt 90.7 kg
[~2016-10-15 17:45] MED LIST changes: +BUMETANIDE2 MG PO; +DILTIAZEM30 MG PO; +RISPERDAL0.25 MG PO
[2016-10-15] MEDS ORDERED: MIRALAX17 GM PO (18:11)
[2016-10-15] MEDS ORDERED: LOPRESSOR25 MG PO (18:11)
[2016-10-15] MEDS ORDERED: DUONEB 3 MG/3 ML3 M1 INH (18:11)
[2016-10-15] MEDS ORDERED: POTASSIUM CHLO20 ME3 PO (18:12)
[2016-10-15] MEDS ORDERED: NORCO 7.5-3251 EACH PO (18:12)
[2016-10-15] MEDS ORDERED: RIVASTIGMINE1 EACH T (18:13)
[2016-10-15] MEDS ORDERED: RISPERDAL0.25 MG PO (18:13)
[2016-10-15] MEDS ORDERED: PULMICORT0.5 MG/2 M INH (18:13)
[2016-10-15] MEDS ORDERED: FLOMAX0.4 MG PO (18:14)
[2016-10-15] MEDS ORDERED: VITAMIN B150 MG PO (18:14)
[2016-10-15] MEDS ORDERED: BUMETANIDE2 MG PO (18:15)
[2016-10-15] MEDS ORDERED: DILTIAZEM30 MG PO (18:15)
[2016-10-15] MEDS ORDERED: DIGOXIN0.125 MG PO (18:15)
[2016-10-15] MEDS ORDERED: LIPITOR20 MG PO (18:15)
[2016-10-15] MEDS ORDERED: FINASTERIDE5 M1 PO (18:16)
[2016-10-15] MEDS ORDERED: ELIQUIS2.5 M1 PO (18:16)
[2016-10-15] MEDS ORDERED: IMDUR SA60 M1 PO (18:17)
[2016-10-15 18:28] LABS: BASO % 0.3 % (0.0-1.0); EOS # 0.1 10*3/uL (0.0-0.4); EOS % 2.1 % (1.0-4.0); HEMATOCRIT 31.4 % (42.0-52.0); HEMOGLOBIN 9.7 g/dl (14.0-18.0); LYMPH # 1.1 10*3/uL (1.3-4.4); LYMPH % 16.4 % (27.0-41.0); MEAN CELL VOLUME 94.9 fl (80.0-94.0); MEAN CORPUSCULAR HGB 29.3 pg (27.0-31.0); MEAN CORPUSCULAR HGB CONC 30.9 g/dl (33.0-37.0); MONO # 0.8 10*3/uL (0.1-1.0); MONO % 11.9 % (3.0-9.0); NEUT # 4.5 10*3/uL (2.3-7.9); PLATELET COUNT AUTOMATED 199 10*3/uL (130-400); RED BLOOD COUNT 3.31 10*6/uL (4.50-5.90); RED CELL DISTRI WIDTH 14.5 % (0-14.5); WHITE BLOOD COUNT 6.5 10*3/uL (4.8-10.8)
[2016-10-15 18:38] LABS: INTERNATIONAL NORM RATIO 1.1 (2.0-3.5); PROTHROMBIN TIME 11.7 SECONDS (9.0-12.4)
[2016-10-15 18:42] LABS: ALBUMIN 2.6 gm/dl (3.1-4.5); BILIRUBIN, TOTAL 0.4 mg/dl (0.2-1.0); C-REACTIVE PROTEIN 2.27 MG/DL (0-0.3); CKMB 0.8 ng/ml (0.5-3.6); MAGNESIUM 1.8 mg/dL (1.5-2.1); TROPONIN I 0.024 ng/ml (<0.045)
[2016-10-15 19:16] VITALS: BP 139/73
== END 2016-10-15 19:53 ==
LOC: ED 17:45
PROVIDERS: Nurse Practitioner Family
DX: G45.9 Transient cerebral ischemic attack, unspecified (principal); I25.10 Atherosclerotic heart disease of native coronary artery without angina pectoris; I48.91 Unspecified atrial fibrillation; I13.0 Hypertensive heart and chronic kidney disease with heart failure and stage 1 through stage 4 chronic kidney disease, or unspecified chronic kidney disease; N18.9 Chronic kidney disease, unspecified; I25.2 Old myocardial infarction; F03.90 Unspecified dementia, unspecified severity, without behavioral disturbance, psychotic disturbance, mood disturbance, and anxiety; Z95.1 Presence of aortocoronary bypass graft; Z88.8 Allergy status to other drugs, medicaments and biological substances; Z79.899 Other long term (current) drug therapy